=== PATIENT | female | born 1995 | race Caucasian/White ===

== ENCOUNTER 2016-09-02 22:04 | Emergency (ER) | payer MEDICAID ==
--- NOTE | 2016-09-02 22:56 | ED Physician Chart ---
Chief Complaint/HPI - Patient Information Date Seen:: 09/02/16 Time Seen:: 22:51 Chief Complaint:: diarrhea History of Present Illness:: pt w diarrhea x 1 week. began after she ate [employer] (boyfriend was also ill w diarrhea that nt after ate same food). d was green to yellow. nonbloody. vomited 1x on sat. nonbloody emesis. no fever. gets abd cramps intermittently...no pains now. no sev dehydration. no ray pmh. lmp is now and nrml in timing/flow/duration. she has tried no meds for diarrhea nor cramps. has a pmd but hasnt been. did go to work today. no abd sx hx. no urine changes. no vag dc. pt had small amt diarrhea 7x while at work today. eating causes her d to occur so she eats less but is eating/drinking ok. Allergies:: Allergies Allergy/AdvReac Type Severity Reaction Status Date / Time No Known Allergies Allergy Verified 09/02/16 22:16 Vitals:: Vital Signs - 8 hr 09/02/16 22:15 Temp 98.1 F HR 99 RR 18 BP 100/75 O2 Sat % 97 Historian:: Patient Review of Systems - Review of Systems General/Constitutional: No fever, No chills, No weight loss, No weakness, No diaphoresis, No edema, No loss of appetite Skin: No skin lesions, No rash, No bruising Head: No headache, No light-headedness Eyes: No loss of vision, No pain, No diplopia ENT: No earache, No nasal drainage, No sore throat, No tinnitus Neck: No neck pain, No swelling, No thyromegaly, No stiffness, No mass noted Cardio Vascular: No chest pain, No palpitations, No PND, No orthopnea, No edema Pulmonary: No SOB, No cough, No sputum, No wheezing GI: No nausea, No vomiting, Diarrhea, No pain, No melena, No hematochezia, No constipation, No hematemesis G/U: No dysuria, No frequency, No hematuria Operations Assistant: No vaginal discharge, No abnormal vaginal bleed Musculoskeletal: No bone or joint pain, No back pain, No muscle pain Endocrine: No polyuria, No polydipsia Psychiatric: No prior psych history, No depression, No anxiety, No suicidal ideation Hematopoietic: No bruising, No lymphadenopathy Allergic/Immuno: No urticaria, No angioedema Neurological: No syncope, No focal symptoms, No weakness, No paresthesia, No headache, No seizure, No dizziness, No confusion, No vertigo Past Medical History - Past Medical History Past Medical History: No significant medical hx Social History: Non Smoker, Lives With Parents Medication: None Family Medical History - Family Member Father History Unknown: Yes Grandmother Hx Family Diabetes: Yes Physical Exam - Physical Examination General/Constitutional: Awake, Well-developed, well-nourished, Alert, No distress, GCS 15, Non-toxic appearing, Ambulatory Other Gen/Cons comments:: awake/alert/ mobile wo any percievable pain. wn/wh. Head: Atraumatic Eyes: Lids, conjuctiva normal, PERRL, EOMI Skin: Nl inspection, No rash, No skin lesions, No ecchymosis, Well hydrated, No lymphadenopathy ENMT: External ears, nose nl, Nasal exam nl, Lips, teeth, gums nl Neck: Nontender, Full ROM w/o pain, No JVD, No nuchal rigidity, No bruit, No mass, No stridor Respiratory: Nl effort/Exclusion, Clear to Auscultation, No Wheeze/Rhonchi/Rales Cardio Vascular: RRR, No murmur, gallop, rubs, NL S1 S2 GI: No tenderness/rebounding/guarding, No organomegaly, No hernia, Normal BS's, Nondistended, No mass/bruits, No McBurney tenderness Other GI comments:: vague mild tndr nonfocal. no pantoja sx. mod obese. no cva tndr. no rebound. pos nabs. no masses. : No CVA tenderness Extremities: No tenderness or effusion, Full ROM, normal strength in all extremities, No edema, Normal digits & nails Neuro/Psych: Alert/oriented, DTR's symmetric, Normal sensory exam, Normal motor strength, Judgement/insight normal, Mood normal, Normal gait, No focal deficits Misc: normal gait, Normal back, No paraspinal tenderness Labs/Radiology/EKG Results - Lab Results Results: Laboratory Tests 09/02/16 09/02/16 22:45 22:45 Urine Source CLEAN C Urine Color YELLOW Urine Clarity CLEAR Urine pH 5.5 Ur Specific [place] 1.025 Urine Protein NEGATIVE Urine Glucose (UA) NEGATIVE Urine Ketones TRACE Urine Blood NEGATIVE Urine Nitrate NEGATIVE Urine Bilirubin NEGATIVE Urine Urobilinogen 0.2 Ur Leukocyte Esterase NEGATIVE Urine RBC 10-25 H Urine WBC 0-2 Ur Epithelial Cells MODERATE Urine Bacteria MODERATE Urine Test NEGATIVE pt on menses now..."clean" catch... ED Septic Shock - . Is Septic Shock (SBP<90, OR Lactate>4 mmol\\L) present?: No - <6hrs of presentation: Vital Signs: Vital Signs - 8 hr 09/02/16 22:15 Temp 98.1 F HR 99 RR 18 BP 100/75 O2 Sat % 97 Reassessment (Disposition) - Reassessment Reassessment:: d/w pt + her mom about dx and plan. a stool for testing would be ideal but pt cant go now. offered her a rx for lab check of stool and rx for antidiarrheal med //lomotil and abx. bactrim ds and med for cramps. bentyl (low dose) advise she see pmd tmrw for rechk. plenty fluids and rest. if she can take stool to lab for testing...lab order provided on rx. Reassessment Condition:: Unchanged - Diagnosis Diagnosis:: diarrhea and cramps x 1 week probable infectious diarrhea - Aftercare/Follow up Instructions Aftercare/Follow-Up Instructions:: Counseled pt & family regarding lab results/ diagnosis & need follow up - Patient Disposition Discharge/Transfer:: Home Condition at Disposition:: Unchanged
[2016-09-02 23:11] LABS: URINE COLOR YELLOW; URINE GLUCOSE (UA) NEGATIVE (NEGATIVE)
[2016-09-02 23:12] LABS: URINE BILIRUBIN NEGATIVE (NEGATIVE); URINE BLOOD NEGATIVE (NEGATIVE); URINE KETONE TRACE mg/dL (NEGATIVE); URINE PH 5.5; URINE PROTEIN NEGATIVE (NEGATIVE); URINE UROBILINOGEN 0.2 E.U./dL (0.2 - 1.0)
[2016-09-02 23:15] LABS: URINE BACTERIA MODERATE /hpf (NONE SEEN); URINE EPITHELIAL CELLS MODERATE /lpf (FEW); URINE WBC 0-2 /hpf (0-5)
== END 2016-09-02 23:35 | disposition home or self-care (01) ==
LOC: ER 22:04
DX: R19.7 Diarrhea, unspecified (principal)
CPT/HCPCS: 81001-TC; 81025-TC; Z7502

== ENCOUNTER 2016-11-19 18:14 | Emergency (ER) | payer MEDICAID ==
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
== END 2016-11-19 19:29 | disposition home or self-care (01) ==
LOC: ER 18:14
DX: S39.012A Strain of muscle, fascia and tendon of lower back, initial encounter (principal); S80.01XA Contusion of right knee, initial encounter; V49.9XXA Car occupant (driver) (passenger) injured in unspecified traffic accident, initial encounter; Y93.89 Activity, other specified; Y92.488 Other paved roadways as the place of occurrence of the external cause; Y99.8 Other external cause status
CPT/HCPCS: 73560-TC-RT; 81025-TC; Z7502